=== PATIENT | female | born 2000 | race Caucasian/White ===

== ENCOUNTER 2022-06-04 13:37 | Emergency (ER) | payer OTHER ==
[2022-06-04 14:12] VITALS: BP 151/93; PULSE 92; RESP 18; TEMP 99.2; BMI 36.8
== END 2022-06-04 18:34 | disposition home or self-care (01) ==
LOC: JER 13:37
DX: J06.9 Acute upper respiratory infection, unspecified (principal)
CPT/HCPCS: 0241U-QW; 99283-25